=== PATIENT | male | born 2000 | race Caucasian/White ===

== ENCOUNTER 2018-01-20 17:56 | Emergency (ER) | payer BC ==
[2018-01-20 18:17] VITALS: BP 112/70
[2018-01-20] MEDS ORDERED: Ondansetron ODT TAB* 4 MG SL ONE (18:57)
--- NOTE | 2018-01-20 19:03 | UC ---
FLU HPI - HPI Summary HPI Summary: Patient is an otherwise healthy 17-year-old male presenting to the ED with flulike symptoms. He endorses a fever, sweats, chills, body aches, nausea with one episode of vomiting at 5:00 this morning. He states symptoms began last evening and worsened over this morning. He denies having the flu vaccination. He has never had anything like this before. He denies any cough, sore throat, sinus pressure pain. He does endorse photophobia, denies any neck pain. Denies any known sick contacts. - History of Current Complaint Chief Complaint: UCGeneralIllness Stated Complaint: FEVER,VOMIT,SORE THROAT Time Seen by Provider: 01/20/18 18:19 Hx Obtained From: Patient Onset/Duration: Sudden Onset Severity Currently: Moderate Severity Initially: Moderate Pain Intensity: 9 Pain Scale Used: 0-10 Numeric Associated Signs & Symptoms: Positive: Fever, T Max - 101.1, F/C, Myalgia, Vomiting - Risk Factors Influenza Risk Factors: Negative - Allergy/Home Medications Allergies/Adverse Reactions: Allergies Allergy/AdvReac Type Severity Reaction Status Date / Time No Known Allergies Allergy Verified 01/20/18 18:17 PMH/Surg Hx/FS Hx/Imm Hx Previously Healthy: Yes Other History Of: Negative For: Anticoagulant Therapy - Surgical History Surgical History: None - Social History Occupation: Employed Full-time Lives: With Family Alcohol Use: None Substance Use Type: None Smoking Status (MU): Heavy Every Day Tobacco Smoker Type: eCigarettes Amount Used/How Often: ECIGARETTES Have You Smoked in the Last Year: No - Immunization History Most Recent Influenza Vaccination: none Most Recent Pneumonia Vaccination: none Vaccination Up to Date: Yes Review of Systems All Other Systems Reviewed And Are Negative: Yes Constitutional: Positive: Fever, Chills, Fatigue Eyes: Positive: Photophobia. Negative: Blurred Vision, Drainage, Eye Redness ENT: Negative: Dental Pain, Sore Throat, Sinus Congestion, Sinus Pain/Tenderness Respiratory: Negative: Shortness Of Breath, Cough Cardiovascular: Negative: Palpitations, Chest Pain Gastrointestinal: Positive: Vomiting, Nausea. Negative: Abdominal Pain, Diarrhea Motor: Positive: Negative Neurovascular: Positive: Negative Musculoskeletal: Positive: Myalgia Neurological: Negative: Headache Is Patient Immunocompromised?: Yes Physical Exam Triage Information Reviewed: Yes Appearance: Well-Appearing, Well-Nourished Vital Signs: Initial Vital Signs Temp 98.8 F 01/20/18 18:12 Pulse 104 01/20/18 18:12 Resp 14 01/20/18 18:12 BP 112/70 01/20/18 18:12 Pulse Ox 99 01/20/18 18:12 Vital Signs Reviewed: Yes Eye Exam: Normal Eyes: Positive: Conjunctiva Clear Neck exam: Normal Neck: Positive: Supple, No Lymphadenopathy Respiratory Exam: Normal Respiratory: Positive: Chest non-tender, Lungs clear Cardiovascular Exam: Normal Cardiovascular: Positive: RRR Musculoskeletal Exam: Normal Musculoskeletal: Positive: Strength Intact Neurological Exam: Normal Neurological: Positive: Alert Psychological: Positive: Normal Response To Family Skin Exam: Normal Flu Course/Dx - Course Course Of Treatment: Flu swab negative. On physical examination, there is no pharyngeal erythema or sinus pressure on palpation. Lungs CTA, RRR. Patient appears ill. He states he is okay for discharge at this time and will remain home resting and drinking plenty of fluids. He will be diagnosed with a viral syndrome. - Differential Dx/Diagnosis Differential Diagnosis/HQI/PQRI: Bronchitis, Influenza, Upper Respiratory Infection Provider Diagnosis: Viral syndrome Discharge - Sign-Out/Discharge Documenting (check all that apply): Patient Departure All imaging exams completed and their final reports reviewed: No Studies - Discharge Plan Condition: Stable Disposition: HOME Prescriptions: Ondansetron ODT TAB* [Zofran 4 MG Odt TAB*] 4 mg PO Q6H PRN #12 tab.odt MDD 4 PRN Reason: Nausea Patient Education Materials: Viral Syndrome (ED) Forms: *Work Release Referrals: No Primary Care Phys,NOPCP [Primary Care Provider] - Additional Instructions: DRINK PLENTY OF FLUIDS! Tylenol 650mg three times daily - do not exceed this dose Ibuprofen 600mg three times daily - do not exceed this dose Use these intermittently (you will be taking either one every 3 hours) chicken noodle soup, rice, bananas, apple sauce - gentle foods for your stomach Zofran as needed for nausea - take before attempting to eat Sleep as much as possible - Billing Disposition and Condition Condition: STABLE Disposition: Home
== END 2018-01-20 19:00 | disposition home or self-care (01) ==
LOC: UCEAST 17:56
DX: B34.9 Viral infection, unspecified (principal); F17.290 Nicotine dependence, other tobacco product, uncomplicated
CPT/HCPCS: 99212; A9270-GY; G0463